=== PATIENT | female | born 1955 | race Caucasian/White ===

== ENCOUNTER → 2023-12-11 15:55 | Outpatient (REF) | payer MEDICARE, SELFPAY | LOC: RCS 15:55 | PROVIDERS: ATTENDING PHYSICIAN Internal Medicine Cardiovascular Disease; FAMILY PHYSICIAN Nurse Practitioner Primary Care | DX: I49.3 Ventricular premature depolarization (principal); I10 Essential (primary) hypertension | CPT/HCPCS: 93306 ==

== ENCOUNTER → 2024-06-29 12:24 | Outpatient (REF) | payer MEDICARE, SELFPAY | LOC: MRI 3T 12:24 | PROVIDERS: ATTENDING PHYSICIAN Physician Assistant; FAMILY PHYSICIAN Internal Medicine Geriatric Medicine | DX: M54.50 Low back pain, unspecified (principal) | CPT/HCPCS: 72148 ==